=== PATIENT | female | born 1980 | race Caucasian/White ===

== ENCOUNTER 2020-05-21 05:18 | Emergency (ER) | payer OTHER, SELFPAY ==
[2020-05-21 06:09] LABS: Absolute Lymphocytes (CBC) 1.2 K/uL (0.7-4.9); Basophils % 0.6 % (0-1.3); Hematocrit 38.2 % (36.0-45.0); Lymphocytes % 11.9 % (15.3-44.8); MPV 9.4 fL (7.6-11.3); RBC Red Blood Cell Count 4.47 M/uL (3.86-4.86)
[2020-05-21] MEDS ORDERED: ONDANSETRON 4 MG/2 ML VIAL ONE (06:10)
[2020-05-21] MEDS ORDERED: NA CHLORIDE 0.9% 1,000 ML ONE (06:10)
[2020-05-21] MEDS ORDERED: DIPHENOX/ATROP SULF 1 TAB PO ONE (06:14)
[2020-05-21 06:17] LABS: ALT/SGPT 18 U/L (12-78); AST/SGOT 11 U/L (15-37); Albumin 3.8 g/dL (3.4-5.0); Alkaline Phosphatase 19 U/L (45-117); BUN Blood Urea Nitrogen 9 mg/dL (7-18); Bicarbonate 27 mmol/L (21-32); Bilirubin Direct 0.2 mg/dL (0-0.2); Bilirubin Total 0.7 mg/dL (0.2-1.0); Glucose Level 110 mg/dL (74-106); Potassium 4.4 mmol/L (3.5-5.1); Sodium Level 139 mmol/L (136-145)
--- NOTE | 2020-05-21 06:48 | ER ---
Nurse's Notes [facility] Name: Monica Jay Age: 40 yrs Sex: Female : 1980 Arrival Date: 05/21/2020 Time: 05:23 Bed 20 Private MD: Diagnosis: Vomiting, unspecified;Diarrhea, unspecified Presentation: 05/21 05:40 Chief complaint: Patient states: pt states she started having nausea and diarrhea last ll2 night around 2200 and felt like her heart began to race. states she does have a HX of anxiety and has been highly stressed lately so she wasn't sure if that was the problem and decided to, however when it still hadn't she decided to come into the ER. Coronavirus screen: Client denies travel out of the [place] in the last 14 days. Client presents with at least one sign or symptom that may indicate coronavirus-19. Standard/surgical mask placed on the client. Ebola Screen: Patient negative for fever greater than or equal to 101.5 degrees Fahrenheit, and additional compatible Ebola Virus Disease symptoms. Initial Sepsis Screen: Does the patient meet any 2 criteria? No. Patient's initial sepsis screen is negative. Does the patient have a suspected source of infection? No. Patient's initial sepsis screen is negative. Risk Assessment: Do you want to hurt yourself or someone else? Patient reports no desire to harm self or others. 05:40 Method Of Arrival: Ambulatory ll2 05:40 Acuity: EH 4 ll2 05:40 Onset of symptoms was May 20, 2020. ll2 Triage Assessment: 05:40 General: Appears in no apparent distress. GI: Reports diarrhea, nausea, vomiting, since ll2 last night around 2200. CLAIM MANAGER: 05:40 LMP 05/16/2020 ll2 Historical: - Allergies: 05:36 Latex, Natural Rubber; ll2 - PMHx: 05:36 Anxiety; ll2 - Immunization history:: Adult Immunizations up to date. - Social history:: Smoking status: unknown. - Family history:: not pertinent. - Hospitalizations: : No recent hospitalization is reported. Screenin:36 Abuse screen: Denies threats or abuse. Nutritional screening: No deficits noted. ll2 Tuberculosis screening: No symptoms or risk factors identified. Fall Risk None identified. Assessment: 05:34 General: Appears in no apparent distress. Behavior is calm, cooperative, appropriate ll2 for age. Pain: Complains of pain in abdomen. Neuro: Level of Consciousness is awake, alert, obeys commands, Oriented to person, place, time, situation. Cardiovascular: Patient's skin is warm and dry. Respiratory: Airway is patent Respiratory effort is even, unlabored, Respiratory pattern is regular, symmetrical. GI: Abdomen is round. : No signs and/or symptoms were reported regarding the genitourinary system. EENT: No signs and/or symptoms were reported regarding the EENT system. Derm: Skin is intact, is healthy with good turgor, Skin is dry, Skin is pink, warm \T\ dry. Skin temperature is warm. Musculoskeletal: Circulation, motion, and sensation intact. Range of motion:. 06:24 Reassessment: Patient and/or family updated on plan of care and expected duration. Pain ll2 level reassessed. Patient is alert, oriented x 3, equal unlabored respirations, skin warm/dry/pink. 07:58 Reassessment: Pt was called and given negative COVID-19 result and negative Flu result aa5 [id number] per Dr. Conklin. . Vital Signs: 05:36 BP 131 / 90; Pulse 89; Resp 19; Temp 98.5; Pulse Ox 98% on R/A; ll2 06:44 BP 127 / 73; Pulse 78; Resp 18; Pulse Ox 97% ; ll2 ED Course: 05:23 Patient arrived in ED. am2 05:26 Celestino Conklin MD is Attending Physician. rn 05:34 Joyce Sorenson RN is Primary Nurse. ll2 05:36 Patient has correct armband on for positive identification. Bed in low position. Call ll2 light in reach. Side rails up X 1. Pulse ox on. NIBP on. 05:36 No provider procedures requiring assistance completed. ll2 05:40 Arm band placed on right wrist. ll2 05:50 Initial lab(s) drawn, by me, sent to lab. Inserted saline lock: 20 gauge in right ll2 antecubital area, using aseptic technique. Blood collected. 06:15 Flu Sent. ll2 06:43 Triage completed. ll2 06:59 IV discontinued, intact, bleeding controlled, No redness/swelling at site. Pressure ll2 dressing applied. Administered Medications: 06:14 Drug: NS 0.9% 1000 ml Route: IV; Rate: 1000 ml; Site: right antecubital; ll2 07:00 Follow up: Response: No adverse reaction; IV Status: Completed infusion; IV Intake: ll2 500ml 06:14 Drug: Zofran (Ondansetron) 4 mg Route: IVP; Site: right antecubital; ll2 07:00 Follow up: Response: No adverse reaction ll2 06:14 Drug: LoMOTIL 2 tabs Route: PO; ll2 06:59 Follow up: Response: No adverse reaction ll2 Intake: 07:00 IV: 500ml; Total: 500ml. ll2 Outcome: 06:47 Discharge ordered by . rn 06:59 Discharged to home ambulatory. ll2 06:59 Condition: stable 06:59 Discharge instructions given to patient, Instructed on discharge instructions, follow up and referral plans. medication usage, Demonstrated understanding of instructions, follow-up care, medications, Prescriptions given X 1. 07:01 Patient left the ED. ll2 Signatures: Celestino Conklin MD MD rn Calderon, Audri RN RN [id number] Olena Santos am2 Joyce Sorenson RN RN ll2
--- NOTE | 2020-05-21 06:48 | EDPHYS ---
Physician Documentation [facility] Name: Monica Jay Age: 40 yrs Sex: Female : 1980 Arrival Date: 05/21/2020 Time: 05:23 Bed 20 Private MD: ED Physician Celestino Conklin HPI: 05/21 05:49 This 40 yrs old Female presents to ER via Unassigned with complaints of rn Nausea, Diarrhea, heart racing. 05:49 The patient presents to the emergency department with nausea, vomiting, diarrhea. rn Onset: The symptoms/episode began/occurred yesterday. Possible causes: unknown. The symptoms are aggravated by nothing. The symptoms are alleviated by nothing. Severity of symptoms: At their worst the symptoms were mild in the emergency department the symptoms are unchanged. The patient has experienced similar episodes in the past. The patient has not recently seen a physician. Reports began with nausea/vomiting/diarrhea yesterday, child has an illness/cough, no fever, reports mild abd cramping similar to previous episodes of diarrhea. No blood in stool. No cough/sob/change in taste or smell. . 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 - Social history:: Smoking status: unknown. - Family history:: not pertinent. - Hospitalizations: : No recent hospitalization is reported. ROS: 05:49 Constitutional: Negative for fever, chills, and weight loss, Eyes: Negative for injury, rn pain, redness, and discharge, Neck: Negative for injury, pain, and swelling, Cardiovascular: Negative for chest pain, palpitations, and edema, Respiratory: Negative for shortness of breath, cough, wheezing, and pleuritic chest pain, Abdomen/GI: Negative for constipation Back: Negative for injury and pain, MS/Extremity: Negative for injury and deformity, Skin: Negative for injury, rash, and discoloration, Neuro: Negative for headache, numbness, tingling, and seizure. Exam: 05:49 Constitutional: This is a well developed, well nourished patient who is awake, alert, rn and in no acute distress. Head/Face: Normocephalic, atraumatic. Cardiovascular: Regular rate and rhythm. No pulse deficits. Respiratory: No increased work of breathing, no retractions or nasal flaring. Abdomen/GI: soft, non-tender Skin: Warm, dry MS/ Extremity: Pulses equal, no cyanosis. Neuro: Awake and alert, GCS 15 Vital Signs: 05:36 BP 131 / 90; Pulse 89; Resp 19; Temp 98.5; Pulse Ox 98% on R/A; ll2 06:44 BP 127 / 73; Pulse 78; Resp 18; Pulse Ox 97% ; ll2 MDM: 05:26 Patient medically screened. rn 06:46 Differential diagnosis: viral gastroenteritis, gastroenteritis, flu, COVID. Data rn reviewed: vital signs, nurses notes, lab test result(s), and as a result, I will discharge patient. Counseling: I had a detailed discussion with the patient and/or guardian regarding: the historical points, exam findings, and any diagnostic results supporting the discharge/admit diagnosis, lab results, the need for outpatient follow up, to return to the emergency department if symptoms worsen or persist or if there are any questions or concerns that arise at home. Response to treatment: the patient's symptoms have markedly improved after treatment, and as a result, I will discharge patient. Special discussion: I discussed with the patient/guardian in detail that at this point there is no indication for admission to the hospital. It is understood, however, that if the symptoms persist or worsen the patient needs to return immediately for re-evaluation. ED course: Pt requests to be discharged and called with COVID/flu results, she is scared of getting COVID in ER, told her since tests had not been started yet in lab (we confirmed), would be a long wait and will pass on f/u of results to next charge nurse. . 05/21 05:36 Order name: Flu rn 05/21 05:36 Order name: CBC with Diff; Complete Time: 06:31 rn 05/21 05:36 Order name: Hepatic Function; Complete Time: 06:31 rn 05/21 05:36 Order name: IV Start; Complete Time: 06:15 rn 05/21 05:36 Order name: Labs collected and sent; Complete Time: 06:15 rn 05/21 05:37 Order name: Basic Metabolic Panel; Complete Time: 06:31 EDMS Administered Medications: 06:14 Drug: NS 0.9% 1000 ml Route: IV; Rate: 1000 ml; Site: right antecubital; ll2 07:00 Follow up: Response: No adverse reaction; IV Status: Completed infusion; IV Intake: ll2 500ml 06:14 Drug: Zofran (Ondansetron) 4 mg Route: IVP; Site: right antecubital; ll2 07:00 Follow up: Response: No adverse reaction ll2 06:14 Drug: LoMOTIL 2 tabs Route: PO; ll2 06:59 Follow up: Response: No adverse reaction ll2 Disposition: 05/21/20 06:47 Discharged to Home. Impression: Vomiting, unspecified, Diarrhea, unspecified. - Condition is Stable. - Discharge Instructions: Diarrhea, Adult, Nausea and Vomiting, Adult. - Prescriptions for Zofran ODT 4 mg Oral tablet,disintegrating - place 1 tablet by TRANSLINGUAL route every 8 hours As needed; 20 tablet. - Medication Reconciliation Form, Thank You Letter, Antibiotic Education, Prescription Opioid Use, Work release form form. - Follow up: Private Physician; When: As needed; Reason: Recheck today's complaints, Re-evaluation by your physician. - Problem is new. - Symptoms have improved. Signatures: Dispatcher [employer] EDMS Celestino Cnoklin MD MD rn Linscombe, Lacie, RN RN ll2 Corrections: (The following items were deleted from the chart) 07:01 06:47 05/21/2020 06:47 Discharged to Home. Impression: Vomiting, unspecified; Diarrhea, ll2 unspecified. Condition is Stable. Forms are Medication Reconciliation Form, Thank You Letter, Antibiotic Education, Prescription Opioid Use. Follow up: Private Physician; When: As needed; Reason: Recheck today's complaints, Re-evaluation by your physician. Problem is new. Symptoms have improved. rn
[2020-05-21 07:06] VITALS: TEMP 98.5
[2020-05-21 07:07] VITALS: BP 127/73; O2SAT 97
[2020-05-21 07:18] LABS: SARS-COV-2 RT PCR NEGATIVE (NEGATIVE)
== END 2020-05-21 07:01 | disposition home or self-care (01) ==
LOC: ER 05:18
DX: R11.2 Nausea with vomiting, unspecified (principal); R19.7 Diarrhea, unspecified; Z20.822 Contact with and (suspected) exposure to COVID-19; F41.9 Anxiety disorder, unspecified
CPT/HCPCS: 85025; 80048; 36415; 80076; 0240U; J7030; J2405; 96361; 96374; 99284